=== PATIENT | female | born 1975 | race Two or more races ===

== ENCOUNTER 2017-03-10 20:57 | Emergency (ER) | payer SELFPAY ==
[~2017-03-10] VITALS: Ht 175.3 cm; Wt 95.8 kg
[2017-03-10 23:31] LABS: EOSINOPHILS % 1.7 % (0.0-5.0); HEMATOCRIT. 43.4 % (36.0-48.0); HEMOGLOBIN. 15.4 g/dL (12.0-16.0); LYMPHOCYTES % 51.7 % (20.0-50.0); MEAN CORPUSCULAR HEMOGLOBIN 28.5 pg (28.0-32.0); MEAN CORPUSCULAR VOLUME 80.5 fL (81.0-99.0); MEAN PLATELET VOLUME 8.2 fl (7.4-10.4); MONOCYTES % 6.4 % (2.0-8.0); NEUTROPHILS % 39.2 % (40.0-76.0); PLATELET 278 x1000/uL (130-400); RED BLOOD CELL COUNT 5.39 mill/uL (4.2-5.4); RED CELL DISTRIBUTION WIDTH 12.8 % (11.6-14.6)
[2017-03-10 23:43] LABS: CARBON DIOXIDE 26 mEq/L (21-32); CHLORIDE 100 mEq/L (98-107); TROPONIN I < 0.02 ng/mL (0.00-0.04)
[2017-03-11] MEDS: HYDROCODONE/ACETAMINOPHEN 5/325MG TABLET PO ONE (00:08)
[2017-03-11 00:55] VITALS: BP 127/76
== END 2017-03-11 01:00 | disposition home or self-care (01) ==
LOC: ER 20:57
DX: R07.9 Chest pain, unspecified (principal); I10 Essential (primary) hypertension; F17.200 Nicotine dependence, unspecified, uncomplicated; E11.9 Type 2 diabetes mellitus without complications
CPT/HCPCS: 36415; 71010; 80048; 83880; 84484; 85025; 85379; 93005; 99285; Z7610

== ENCOUNTER 2024-05-01 17:10 | Emergency (ER) | payer MEDICAID ==
[~2024-05-01] VITALS: Ht 180.3 cm; Wt 122.0 kg
[2024-05-01 17:21] VITALS: O2SAT 100
[2024-05-01 17:24] VITALS: BP 128/70; PULSE 81; RESP 16; TEMP 98.4; O2SAT 95
== END 2024-05-01 21:13 | disposition home or self-care (01) ==
LOC: ER 17:10
DX: J06.9 Acute upper respiratory infection, unspecified (principal); B97.89 Other viral agents as the cause of diseases classified elsewhere; E11.9 Type 2 diabetes mellitus without complications
CPT/HCPCS: 71046; 99283